=== PATIENT | male | born 1990 | race Two or more races ===

== ENCOUNTER 2018-05-02 22:43 | Emergency (ER) | payer OTHER ==
[~2018-05-02] VITALS: Ht 167.6 cm; Wt 81.6 kg
[~2018-05-02 22:43] MED LIST: IBUPROFEN800 MG PO; SEPTRA DS TABLE1 TAB PO
[2018-05-03] MEDS ORDERED: CIPRO500 MG PO (00:15)
== END 2018-05-03 01:34 | disposition home or self-care (01) ==
LOC: ER 22:43
DX: S91.341A Puncture wound with foreign body, right foot, initial encounter (principal); W26.8XXA Contact with other sharp object(s), not elsewhere classified, initial encounter; Y93.89 Activity, other specified; Y92.89 Other specified places as the place of occurrence of the external cause; Y99.8 Other external cause status

== ENCOUNTER 2019-01-17 07:40 | Emergency (ER) | payer OTHER ==
[~2019-01-17] VITALS: Ht 170.2 cm; Wt 79.8 kg
[~2019-01-17 07:40] MED LIST changes: +CIPRO500 MG PO
[2019-01-17] MEDS ORDERED: SKELAXIN800 MG PO (10:33)
[2019-01-17] MEDS ORDERED: IBUPROFEN800 MG PO (10:33)
== END 2019-01-17 12:12 ==
LOC: ER 07:40
DX: S93.492A Sprain of other ligament of left ankle, initial encounter (principal); X50.9XXA Other and unspecified overexertion or strenuous movements or postures, initial encounter; Y93.39 Activity, other involving climbing, rappelling and jumping off; Y92.89 Other specified places as the place of occurrence of the external cause; Y99.8 Other external cause status